=== PATIENT | male | born 1940 | race Asian ===

== ENCOUNTER 2021-12-10 21:11 | Emergency (ER) | payer SELFPAY ==
[~2021-12-10] VITALS: Ht 180.3 cm; Wt 82.0 kg
[2021-12-10 21:15] VITALS: BP 149/88
== END 2021-12-10 23:35 | disposition left against medical advice (07) ==
LOC: ER 21:11
DX: Z53.21 Procedure and treatment not carried out due to patient leaving prior to being seen by health care provider (principal)
CPT/HCPCS: 93005